=== PATIENT | female | born 1990 | race Caucasian/White ===

== ENCOUNTER 2017-03-28 01:24 | Inpatient (IN) | payer OTHER ==
[2017-03-28] VITALS (11 sets, daily range): BP systolic 111–144; BP diastolic 57–74
[~2017-03-28] VITALS: Ht 160 cm; Wt 62.1 kg
[~2017-03-28 01:24] MED LIST: AFRIN,GENASAL D15 ML BOTH NARES; BIRTH CONTROL; DIFLUCAN150 MG PO; IBUPROFEN800 MG PO; KEFLEX500 MG PO; LO LOESTRIN FE1 EACH PO; MAGIC MOUTHWASH1 ML MM; MOTRIN600 MG PO; MOTRIN800 MG PO; PRENATAL VITAM1 EAC1 PO; ZOFRAN ODT4 MG PO
[2017-03-28] MEDS ORDERED: PRENATAL TABLE1 EAC3 PO (02:20)
[2017-03-28 02:28] LABS: BASOPHIL (%) 0.2 % (0-1); EOSINOPHIL (%) 0.5 % (0-5); EOSINOPHIL COUNT 0.1 K/uL (0-0.3); HEMOGLOBIN 11.4 G/DL (11.9-15.5); IMMATURE GRANULOCYTE (%) 0.6 % (0.0-0.7); LYMPHOCYTE (%) 16.5 % (15-42); LYMPHOCYTE COUNT 1.7 K/uL (1.0-2.8); MCH 29.3 PG (29.0-34.0); MCHC 33.5 G/DL (30.0-36.0); MCV 87.4 FL (83-99); MONOCYTE (%) 9.5 % (3-12); NEUTROPHIL (%) 72.7 % (45-76); NEUTROPHIL COUNT 7.3 K/uL (1.8-6.4); PLATELET COUNT 205 K/uL (156-360); RBC DIS.WIDTH-CV 12.7 % (11.8-14.6); RBC DIS.WIDTH-SD 40.2 % (39-53); RED BLOOD COUNT 3.89 M/uL (3.80-5.20)
[2017-03-29 07:44] LABS: BASOPHIL (%) 0.3 % (0-1); EOSINOPHIL (%) 0.3 % (0-5); HEMOGLOBIN 10.6 G/DL (11.9-15.5); IMMATURE GRANULOCYTE (%) 0.6 % (0.0-0.7); LYMPHOCYTE (%) 13.9 % (15-42); LYMPHOCYTE COUNT 1.7 K/uL (1.0-2.8); MCH 29.5 PG (29.0-34.0); MCHC 33.1 G/DL (30.0-36.0); MCV 89.1 FL (83-99); MONOCYTE (%) 7.7 % (3-12); MONOCYTE COUNT 0.9 K/uL (0-0.8); NEUTROPHIL (%) 77.2 % (45-76); NEUTROPHIL COUNT 9.2 K/uL (1.8-6.4); PLATELET COUNT 193 K/uL (156-360); RBC DIS.WIDTH-CV 12.7 % (11.8-14.6); RBC DIS.WIDTH-SD 41.3 % (39-53); RED BLOOD COUNT 3.59 M/uL (3.80-5.20); WHITE BLOOD COUNT 11.9 K/uL (4.1-10.2)
[2017-03-29 07:47] VITALS: BP 125/57
== END 2017-03-29 14:25 | disposition home or self-care (01) | DRG 775 ==
LOC: LDRP-OP 01:24 → 2WEST 01:25 → LDRP-OP 05-13 13:35
PROVIDERS: Advanced Practice Midwife
DX: O70.0 First degree perineal laceration during delivery (principal); O60.14X0 Preterm labor third trimester with preterm delivery third trimester, not applicable or unspecified; Z3A.37 37 weeks gestation of pregnancy; Z37.0 Single live birth; Z87.891 Personal history of nicotine dependence
CPT/HCPCS: 85025; J7120